=== PATIENT | male | born 1955 | race Caucasian/White ===

== ENCOUNTER 2018-06-03 12:03 | Inpatient (IN) ==
[~2018-06-03 12:03] MED LIST: Glycopyrrolate Inj 1 MG/5 ML Syringe IV.PUSH ONE; Lidocaine PF 1% Inj 5 ML Syringe INFILTRATN ONE; Neostigmine Inj 5 MG/5 ML Syringe IV.PUSH ONE; Phenylephrine/NS 1000 MCG/10ML Syringe IV.PUSH ONE; Succinylcholine Inj 100 MG/5 ML Syringe IV.PUSH ONE
[2018-06-03] MEDS ORDERED: fentaNYL Citrate Inj 100 MCG/2 ML Ampul ONE ×2 (12:07→17:07)
[2018-06-03] MEDS ORDERED: Diphtheria/Tetanus/Pertussis Vaccine Inj 0.5 ML Syringe IM ONE (12:10)
[2018-06-03 12:26] LABS: Baso # (Auto) 0.1 th/mm3 (0.0-0.2); Baso % (Auto) 1.5 % (0.0-2.0); Hematocrit 39.7 % (39.0-51.0); Hemoglobin 14.1 gm/dL (13.0-17.0); Lymph % (Auto) 21.2 % (9.0-44.0); Mean Corpuscular HGB Conc 35.6 % (32.0-36.0); Mean Corpuscular Hemoglobin 34.8 pg (27.0-34.0); Mean Corpuscular Volume 97.7 fL (80.0-100.0); Mean Platelet Volume 6.9 fL (7.0-11.0); Mono # (Auto) 0.6 th/mm3 (0.0-0.9); Mono % (Auto) 12.1 % (0.0-8.0); Neut # (Auto) 3.1 th/mm3 (1.8-7.7); Neut % (Auto) 64.2 % (16.0-70.0); Platelet Count 158 th/mm3 (150-450); Red Blood Count 4.07 mil/mm3 (4.50-5.90); Red Cell Distribution Width 13.2 % (11.6-17.2); White Blood Count 4.8 th/mm3 (4.0-11.0)
[2018-06-03 12:35] LABS: Activated Partial Thrombo Time 25.7 sec (24.3-30.1); Prothrombin Time 10.2 sec (9.8-11.6)
--- NOTE | 2018-06-03 12:48 | CT ---
EXAM DATE: 06/03/2018 12:35 PM EDT AGE/SEX: 89 years / Male INDICATIONS: Trauma, nail gun injury to lower back. CLINICAL DATA: This is the patient's initial encounter. Patient reports that signs and symptoms have been present for 1 day and indicates a pain score of Nonresponsive. MEDICAL/SURGICAL HISTORY: Non-responsive. Non-responsive. ORAL CONTRAST: No oral contrast ingested. RADIATION DOSE: 9.96 CTDI (mGy) ; Combined studies COMPARISON: No prior exams available for comparison. TECHNIQUE: Multiple contiguous axial images were obtained through the abdomen and pelvis following b olus infusion of 97 ml Omnipaque 350 (iohexol) nonionic water-soluble contrast as a single exam dos e. No oral contrast ingested. Using automated exposure control and adjustment of the mA and/or kV ac cording to patient size, radiation dose was kept as low as reasonably achievable to obtain optimal di agnostic quality images. DICOM format image data is available electronically for review and comparis on. FINDINGS: Lower Lungs: The visualized lower lungs are clear. Liver: The liver has a homogeneous density without space-occupying lesion. There is no dilation of th e biliary tree. Spleen: Homogeneous density without enlargement. Pancreas: Unremarkable without mass or calcification. Kidneys: Normal in size and shape. No evidence of mass or hydronephrosis. Adrenal Glands: Unremarkable. Aorta: Atherosclerotic changes abdominal aorta without aneurysmal dilation. Bowel/Mesentery: The bowel loops are grossly unremarkable. The cecum and sigmoid colon have a normal configuration. Abdominal Wall: Intact. Retroperitoneum: No evidence of adenopathy in the retrocrural, para-aortic, or deep pelvic regions. Bladder: Contours are smooth. Reproductive Organs: No abnormal masses or calcifications seen. Inguinal: The inguinal region is unremarkable without evidence of adenopathy. Bony Structures: There is a nail in the right sacrum which enters the skin posteriorly just to the l eft of midline at S1 level and traverses the right posterior lateral thecal sac with tip in the regio n of the right S1 anteriorly on the right. This does come in close proximity to the right S1 nerve ro ot. The tip of the nail is along the anterior right sacral region. No peritoneal involvement. There a re degenerative changes within the lower lumbar spine CONCLUSION: 1. Status post nail gun injury with nail at S1 level traversing the posterior lateral thecal sac and coming in close contact with the right S1 nerve root. Electronically signed by: Rob Arriola MD 06/03/2018 12:47 PM EDT
--- NOTE | 2018-06-03 13:00 | CT ---
EXAM DATE: 06/03/2018 12:50 PM EDT AGE/SEX: 89 years / Male INDICATIONS: Trauma, nailgun injury to lower back. CLINICAL DATA: This is the patient's initial encounter. Patient reports that signs and symptoms have been present for 1 day and indicates a pain score of Nonresponsive. MEDICAL/SURGICAL HISTORY: Non-responsive. Non-responsive. RADIATION DOSE: . CTDI (mGy) ; Reconstructed from previous dataset, no dose COMPARISON: No prior exams available for comparison. TECHNIQUE: Contiguous axial images were acquired with a multirow detector CT scanner after intraveno us administration of 97 ml Omnipaque 350 (iohexol) nonionic water-soluble contrast as a cumulative d ose for multiple exams. Multiplanar reconstructions in the sagittal and coronal plane were also perf ormed. Using automated exposure control and adjustment of the mA and/or kV according to patient size, radiation dose was kept as low as reasonably achievable to obtain optimal diagnostic quality images. DICOM format image data is available electronically for review and comparison. FINDINGS: Vertebrae: Normal vertebral body height. Degenerative disc disease L4-5 and L5-S1 levels. No fractur e. Alignment: Anterolisthesis L3 on 4.. Post Contrast: No abnormal areas of enhancement are seen in the cord, dural or paraspinal regions. Other: There is a nail traversing the back posteriorly just to the left of midline S1 level crosses t hrough the right posterior lateral thecal sac and into the right S1 neural foramen contacting the S1 nerve root. The nail is seen along the anterior edge of right S1. T12-L1: The thecal sac has a normal diameter. No evidence of disc bulge or protrusion. The neural foramina are patent bilaterally. L1-L2: The thecal sac has a normal diameter. No evidence of disc bulge or protrusion. The neural f oramina are patent bilaterally. L2-L3: The thecal sac has a normal diameter. No evidence of disc bulge or protrusion. The neural f oramina are patent bilaterally. L3-L4: Mild broad-based disc bulge abuts the ventral thecal sac without canal stenosis. The neural foramina are patent bilaterally. L4-L5: Mild broad-based disc bulge abuts the ventral thecal sac without canal stenosis. The neural foramina are patent bilaterally. L5-S1: The thecal sac has a normal diameter. No evidence of disc bulge or protrusion. The neural f oramina are patent bilaterally. CONCLUSION: 1. Degenerative changes lower lumbar spine. 2. Nail gun injury with nail coursing S1 and involves the thecal sac and right S1 neural foramen con tacting the right S1 nerve root. Electronically signed by: Rob Arriola MD 06/03/2018 12:59 PM EDT
[2018-06-03] MEDS ORDERED: Morphine Inj 4 MG/ML Vial IV.PUSH ONE (13:02)
--- NOTE | 2018-06-03 14:11 | P.CONNS ---
History of Present Illness Chief Complaint: Foreign body in spinal canal History of Present Illness: ~52 y/o male was performing a construction project when a nail gun misfired resulting in a 4 inch nail inserting through the low back, through the spinal canal into the sacrum. He endorses pain in the posterior aspect of his right leg. Denies weakness, numbness, or paresthesias. Review of Systems All other systems reviewed negative except as stated in HPI PMFSH - History History Provided By: Patient - Medical / Surgical Hx Neg / Unobtainable Surgical History: No Previous Surgery (No prior back surgery) - Medical History Medical History: Medical History (Last Reviewed 06/03/18 @ 13:57 by Tushar Santana MD) Prostate cancer Surgical history unknown - Tobacco History Second Hand Smoke Exposure: No Tobacco Use In Past 30 Days: Yes Smoking Status: Current every day smoker Tobacco Type: Cigarettes - Alcohol History How Often Do You Have a Drink Containing Alcohol: 2 to 4 times a month - Substance Use History Substance History: No History of Abuse - Travel History Recent Travel in the [place] Within the Last 8 Weeks: No Recent Travel Out of the Country Within the Last 8 Weeks: No - Immunization History Tetanus Immunization: >5 Years Hx Influenza Vaccine This Season: No Medications and Allergies Allergies Allergy/AdvReac Type Severity Reaction Status Date / Time codeine AdvReac Nausea Verified 06/03/18 12:51 Home Medications Medication Instructions Recorded Confirmed Type No Known Home Medications 06/03/18 06/03/18 History Exam Vital signs: Vital Signs 06/03/18 12:29 06/03/18 12:30 06/03/18 12:44 Temperature 98.3 F Pulse Rate 81 Respiratory Rate 16 Blood Pressure 124/52 L Pulse Oximetry 98 98 96 06/03/18 12:47 06/03/18 13:12 06/03/18 13:36 Temperature Pulse Rate 75 63 Respiratory Rate 16 16 16 Blood Pressure 111/52 L 129/59 L Pulse Oximetry 97 99 Intake & Output 06/02/18 06/03/18 06/03/18 18:59 06:59 18:59 Weight 70 kg - Constitutional mild distress - Routine HEENT Exam Head: Present: normocephalic Eye: Present: EOMI, PERRL ENT: Present: mucous membranes moist - Routine Neck Exam Present: supple - Routine Chest/Breast/Axilla Exam Chest wall: Absent: tenderness - Routine Respiratory Exam Absent: respiratory distress - Routine Cardiovascular Exam Present: RRR - Routine Abdominal Exam Present: soft - Routine Back/Spine/Pelvis Exam Back/Spine: Present: paraspinal tenderness Back image: 1 - Nail entry Comments: Nail head evident left lower back - Routine Neurological Exam Present: alert, oriented X3 5/5 strength throughout upper and lower extremities Sensation intact to light touch Results - Laboratory Findings CBC and BMP: 06/03/18 12:05 Abnormal lab findings: Abnormal Labs 06/03/18 12:05 RBC 4.07 L MCH 34.8 H MPV 6.9 L [place] % (Auto) 12.1 H - Diagnostic Findings Additional findings: CT lumbar spine demonstrates a ~4 inch nail entering from left to right traversing the spinal canal at the level of S1 and entering the S1 pedicle. There is air within the spinal canal. Assessment and Plan - Assessment (1) Penetrating injury Code(s): T14.8XXA - Other injury of unspecified body region, initial encounter Status: Acute - Plan ~52 y/o male with penetrating foreign body (4 inch nail) with violation of the spinal canal at the L5/S1 level. He is neurologically intact. He endorses right leg pain, that is new from the injury. Plan: OR urgently for removal of foreign body, washout, possible multi-level laminectomy to accomplish removal, and repair of CSF leak as indicated. He and I discussed the risks and benefits of surgery. Risks were discussed including, but not limited to, infection, CSF leak, retained foreign body, nerve root damage resulting in numbness, weakness, paralysis, bowel/bladder dysfunction, sexual dysfunction, stroke, coma, and . He will require post-operative antibiotics for several days. Appreciate trauma surgery service admission.
[2018-06-03] MEDS ORDERED: HYDROmorphone PF Inj 2 MG/ML Vial IV.PUSH PRN ×2 (14:15→17:46)
[2018-06-03] MEDS: Sod Chloride 0.9% Inj 1,000 ML IV.CONT SCH ×2 (14:30→17:44)
[2018-06-03] MEDS: Pantoprazole Inj 40 MG Vial IV.PUSH SCH (14:33)
[2018-06-03] MEDS ORDERED: Lidocaine 1%/Epinephrine 1:100,000 Inj 20 ML Vial ONE (14:42)
--- NOTE | 2018-06-03 14:43 | ED ---
HPI General Chief Complaint: Trauma Alert Stated Complaint: Trauma Alert Time Seen by Provider: 06/03/18 12:18 Source: patient and EMS Mode of arrival: EMS Limitations: no limitations History of Present Illness HPI narrative: Patient is a 63-year-old male, past medical history significant for previous prostate cancer in remission, who presented as a level 1 trauma. He was at work working on a deck when his coworker turned around with a nail gun in hand and accidentally put a nail into his back. The nails are approximately 3 inches long. EMS reports stable vitals in route. Patient denies numbness, weakness. He denies symptoms other than pain in his low back. complaint: injury Onset (ago): minute(s) Loss of Consciousness: no Location: back Severity: mild Associated symptoms: denies other symptoms Related Data Home Medications Medication Instructions Recorded Confirmed No Known Home Medications 06/03/18 06/03/18 Allergies Allergy/AdvReac Type Severity Reaction Status Date / Time codeine AdvReac Nausea Verified 06/03/18 12:51 Review of Systems Constitutional Denies chills Eyes Denies blurry vision ENT Denies nasal congestion Cardiovascular Denies chest pain Respiratory Denies dyspnea Gastrointestinal Denies abdominal pain Genitourinary Denies flank pain Musculoskeletal Reports back pain Integumentary/Breasts Denies rash Neurologic Denies dizziness Psychiatric Denies confusion [facility] Medical History Medical History Prostate cancer (Acute) Surgical history unknown (Acute) Social History Social History Substance History: No History of Abuse Second Hand Smoke Exposure: No Smoking Status: Current every day smoker Tobacco Type: Cigarettes How Often Do You Have a Drink Containing Alcohol: 2 to 4 times a month Recent Travel in [facility] within the Last 8 Weeks: No Recent Out of Country Travel within the Last 8 Weeks: No Immunization History Tetanus Immunization: >5 Years Hx Influenza Vaccine This Season: No Exam Narrative Exam Narrative: GENERAL: Well-appearing male lying on his side. SKIN: Focused skin assessment warm/dry. HEAD: Atraumatic. Normocephalic. EYES: Pupils equal and round. No scleral icterus. No injection or drainage. ENT: No nasal bleeding or discharge. Mucous membranes pink and moist. NECK: Trachea midline. No JVD. CARDIOVASCULAR: Regular rate and rhythm. No murmur appreciated. RESPIRATORY: No accessory muscle use. Clear to auscultation. Breath sounds equal bilaterally. GASTROINTESTINAL: Abdomen soft, non-tender, nondistended. Hepatic and splenic margins not palpable. MUSCULOSKELETAL: No clubbing. No cyanosis. No edema. Penetrating wound with visible nail head to the low lumbar spine near the midline. NEUROLOGICAL: Awake and alert. No obvious cranial nerve deficits. Able to wiggle toes bilaterally and reports normal sensation in his feet bilaterally. Normal speech. PSYCHIATRIC: Appropriate mood and affect; insight and judgment normal. Course Initial Documented Vital Signs Pulse Oximetry 98 06/03/18 12:29 Last Documented Vital Signs Temperature 98.3 F 06/03/18 12:44 Pulse Rate 71 06/03/18 14:15 Respiratory Rate 16 06/03/18 14:15 Blood Pressure 122/58 L 06/03/18 14:15 Pulse Oximetry 98 06/03/18 14:15 Medical Decision Making MDM Narrative Medical decision making narrative: Patient is a 63-year-old male who presents status post nail gun injury. He is able to wiggle his toes bilaterally and states the sensation is normal in his feet bilaterally. Hemodynamically stable while in the emergency department. CT lumbar spine did show that injury traverses S1. Dr. Gann of neurosurgery was emergently consulted and agreed to take the patient to the operating room. He was given Ancef and his tetanus status was updated in the emergency department. He was then admitted to the trauma service under Dr. Mead for further management. Differential Diagnosis Differential Diagnosis: Differential diagnosis includes but is not limited to spinal cord injury, musculoskeletal injury, intra-abdominal injury. Medical Records Medical records reviewed: Yes I reviewed the patient's medical records. Lab Data Lab results reviewed: Yes I reviewed the patient's lab results. Lab results narrative: Normal hemoglobin. Result diagrams: 06/03/18 12:05 Lab Results 06/03/18 06/03/18 06/03/18 Range/Units 12:05 12:05 12:05 WBC 4.8 (4.0-11.0) th/mm3 RBC 4.07 L (4.50-5.90) mil/mm3 Hgb 14.1 (13.0-17.0) gm/dL POC Hgb (Calc) 13.3 (13.0-17.0) g/dL Hct 39.7 (39.0-51.0) % POC Hct 39.0 (39-51.0) % MCV 97.7 (80.0-100.0) fL MCH 34.8 H (27.0-34.0) pg MCHC 35.6 (32.0-36.0) % RDW 13.2 (11.6-17.2) % Plt Count 158 (150-450) th/mm3 MPV 6.9 L (7.0-11.0) fL Neut % (Auto) 64.2 (16.0-70.0) % Lymph % (Auto) 21.2 (9.0-44.0) % [place] % (Auto) 12.1 H (0.0-8.0) % Eos % (Auto) 1.0 (0.0-4.0) % Baso % (Auto) 1.5 (0.0-2.0) % Neut # (Auto) 3.1 (1.8-7.7) th/mm3 Lymph # (Auto) 1.0 (1.0-4.8) th/mm3 [place] # (Auto) 0.6 (0.0-0.9) th/mm3 Eos # (Auto) 0.0 (0.0-0.4) th/mm3 Baso # (Auto) 0.1 (0.0-0.2) th/mm3 WBC Differential . Differential Comment Auto diff final PT 10.2 (9.8-11.6) sec INR 1.0 Ratio APTT 25.7 (24.3-30.1) sec POC Sodium 142 (137-144) mmol/L POC Potassium 3.9 (3.6-5.0) mmol/L POC Chloride 105 (102-111) mmol/L POC BUN 8 (5-21) mg/dL POC Creatinine 0.9 (0.6-1.3) mg/dL POC Glucose 81 (68-110) mg/dL Blood Type Antibody Screen 06/03/18 Range/Units 12:05 WBC (4.0-11.0) th/mm3 RBC (4.50-5.90) mil/mm3 Hgb (13.0-17.0) gm/dL POC Hgb (Calc) (13.0-17.0) g/dL Hct (39.0-51.0) % POC Hct (39-51.0) % MCV (80.0-100.0) fL MCH (27.0-34.0) pg MCHC (32.0-36.0) % RDW (11.6-17.2) % Plt Count (150-450) th/mm3 MPV (7.0-11.0) fL Neut % (Auto) (16.0-70.0) % Lymph % (Auto) (9.0-44.0) % [place] % (Auto) (0.0-8.0) % Eos % (Auto) (0.0-4.0) % Baso % (Auto) (0.0-2.0) % Neut # (Auto) (1.8-7.7) th/mm3 Lymph # (Auto) (1.0-4.8) th/mm3 [place] # (Auto) (0.0-0.9) th/mm3 Eos # (Auto) (0.0-0.4) th/mm3 Baso # (Auto) (0.0-0.2) th/mm3 WBC Differential Differential Comment PT (9.8-11.6) sec INR Ratio APTT (24.3-30.1) sec POC Sodium (137-144) mmol/L POC Potassium (3.6-5.0) mmol/L POC Chloride (102-111) mmol/L POC BUN (5-21) mg/dL POC Creatinine (0.6-1.3) mg/dL POC Glucose (68-110) mg/dL Blood Type A Positive Antibody Screen Negative Imaging Data Attestation: I personally reviewed and interpreted this imaging study as follows : My impression: Nail gun injury at the S1 level. Radiologist's impression: Abdomen/Pelvis CT 06/03/18 12:09 CONCLUSION: 1. Status post nail gun injury with nail at S1 level traversing the posterior lateral thecal sac and coming in close contact with the right S1 nerve root. Lumbar Spine CT 06/03/18 12:10 CONCLUSION: 1. Degenerative changes lower lumbar spine. 2. Nail gun injury with nail coursing S1 and involves the thecal sac and right S1 neural foramen contacting the right S1 nerve root. Discharge Plan Discharge Disposition Patient Disposition: 30 Still Patient Discharge Condition Condition: Stable Discharge Details Diagnosis: Penetrating injury Physicians Team ED Provider: Niesha Weiss Attending Provider: Cam Mead Other Providers: Dre Quevedo ; Obdulio Almonte ; [facility] [facility] ; Yoel Arias ; Licha Melendez ; Cam Mead ; Lily Wylie ; Rachel Rivre ; Jose Denis Status ED Status: Admitted Patient
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
[2018-06-03] MEDS ORDERED: Gelatin Size 100 Topical Foam ONE (14:57)
[2018-06-03] MEDS ORDERED: ceFAZolin 2 GM Premix Inj 0 GM/0 ML PIGGYBACK IV.SIG ONE (15:03)
[2018-06-03] MEDS: Thrombin Topical Soln 5,000 UNIT Vial TOPICAL ONE ×2 (15:44→18:28)
[2018-06-03] MEDS ORDERED: Vancomycin Inj 1,000 MG in Sodium Chlor 0.9% Inj 250 ML IV.SIG ONE (16:04)
--- NOTE | 2018-06-03 16:57 | P.BOP ---
- Preoperative Diagnosis (1) Penetrating injury Comment: Nail penetration - Postoperative Diagnosis (1) Penetrating injury Comment: Nail penetration Date of procedure: 06/03/18 Procedure: Removal of foreign body; wound washout and closure Anesthesia: GETA Surgeon: Tushar Santana MD Estimated blood loss (mL): 30 Pathology: none sent Condition: stable Disposition: PACU
--- NOTE | 2018-06-03 17:08 | XR ---
EXAM DATE: 06/03/2018 4:59 PM EDT AGE/SEX: 89 years / Male INDICATIONS: Surgical removal of foreign body from posterior sacral region. CLINICAL DATA: This is the patient's initial encounter. Patient reports that signs and symptoms have been present for 1 day and indicates a pain score of Nonresponsive. MEDICAL/SURGICAL HISTORY: None. None. [place] [facility] [place]. . FINDINGS: 2 views of the sacral area was performed. The previously noted nail through the sacrum has been remov ed. Surgical clips are seen on the AP view. CONCLUSION: Satisfactory postoperative view. Electronically signed by: Nino Armando MD 06/03/2018 5:06 PM EDT
--- NOTE | 2018-06-03 18:11 | P.PNNS ---
Subjective Interval history: Post-operative check. Comfortable in bed Physical Exam Vital signs: Vital Signs 06/03/18 12:29 06/03/18 12:30 06/03/18 12:44 Temperature 98.3 F Pulse Rate 81 Respiratory Rate 16 Blood Pressure 124/52 L Pulse Oximetry 98 98 96 06/03/18 12:47 06/03/18 13:12 06/03/18 13:36 Temperature Pulse Rate 75 63 Respiratory Rate 16 16 16 Blood Pressure 111/52 L 129/59 L Pulse Oximetry 97 99 06/03/18 14:15 06/03/18 16:54 06/03/18 17:15 Temperature 97.5 F L Pulse Rate 71 89 Respiratory Rate 16 12 Blood Pressure 122/58 L 146/63 H Pulse Oximetry 98 99 97 06/03/18 17:30 06/03/18 17:45 Temperature Pulse Rate Respiratory Rate Blood Pressure Pulse Oximetry 97 97 Intake & Output 06/02/18 06/03/18 06/03/18 18:59 06:59 18:59 Intake Total 1000 / 1000 Balance 1000 / 1000 Weight 70 kg Intake: IV 1000 / 1000 NS Inj 1,000 ML @ 100 mls/hr IV 1000 / 1000 .CONT .Q10H [facility] Rx#:[id number] Narrative: Opens eyes to voice 5/5 strength throughout extremities Endorses normal sensation to light touch lower extremities Right leg pain improved - Urinary Catheter Management Indwelling Urethral Catheter Cath placed during this visit: yes Reason for continuing: Hourly intake/output Insertion date: 06/03/18 Insertion time: 15:20 Assessment and Plan - Assessment (1) Penetrating injury Code(s): T14.8XXA - Other injury of unspecified body region, initial encounter Status: Acute - Plan Plan: Post-operatively doing well. Neurologically stable, reports improvement in right leg pain. Bactrim DS PO q12h (ordered). Activity ad vickey.
[2018-06-03] MEDS: Docusate Sodium 100 MG Capsule PO SCH (20:02)
--- NOTE | 2018-06-03 20:37 | MP ---
cc: Tushar Santana MD DATE OF OPERATION: 06/03/2018 PREOPERATIVE DIAGNOSIS: Penetrating foreign body, sacral spine. POSTOPERATIVE DIAGNOSIS: Penetrating foreign body, sacral spine. PROCEDURE PERFORMED: 1. Removal of foreign body in the sacral spine. 2. Wound washout. SURGEON: Tushar Santana MD ESTIMATED BLOOD LOSS: 30 mL. 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 He was brought to the ER where CT imaging demonstrated the nail traversing through the spinal canal at the level of S1 and terminating in the right sacrum. Of note, the entry point was on the left and took a left to right trajectory. I evaluated the patient in the ER and we discussed at length the risks and benefits of surgical intervention. We discussed risks including, but not limited to retained foreign body, CSF leak, nerve root damage, bowel or bladder dysfunction, numbness, paralysis, weakness, coma, stroke, , infection. He agreed to proceed with surgery. OPERATION AND FINDINGS: The patient was brought to the major operative suite. He was induced under general endotracheal anesthesia. Preoperative antibiotics in the form of vancomycin were administered. He was carefully rotated 180 degrees onto a Al table with a [place] frame. All pressure points were appropriately padded. A preoperative timeout was performed, verifying the correct patient, procedure and administration of IV antibiotics. The head of the nail was present through the left sacral aspect of the skin. A curvilinear incision was fashioned around the nail. The skin was injected with 1% lidocaine with epinephrine. A 10 blade was used to incise the skin and bipolar electrocautery was used to maintain hemostasis. Dissection was carried down to the level of the fascia. At this point, a pair of sterile pliers was used to gently place outward traction on the nail and it removed with ease. Anesthesia performed a Valsalva maneuver on the patient and there was no evidence of CSF leak. The wound was copiously irrigated with gentamicin irrigation. There was again no evidence of a CSF leak, so we proceeded to close. The fascial layer was closed tightly with 0 Vicryl suture. The subcutaneous layer was closed with 2-0 Vicryl suture and the skin was closed with a running 2-0 nylon vertical mattress suture with intervening kenton. Fluoroscopy was brought in to verify that the entirety of the foreign body was removed. Both AP and lateral shots were taken and it was confirmed that the entirety of the nail was removed, consistent with our gross interpretation of looking at the nail. All counts were correct at the end of the procedure. There were no intraoperative complications. Estimated blood loss was 30 mL. I was present for the entirety of the case from the beginning until the end. DISPOSITION: PACU. MD NORTH Garland/anila , 05:14 PM , 05:21 PM
[2018-06-04] MEDS: Sod Chloride 0.9% Inj 1,000 ML IV.CONT SCH ×2 (03:10→14:43)
[2018-06-04 03:51] LABS: Baso % (Auto) 0.3 % (0.0-2.0); Hematocrit 42.7 % (39.0-51.0); Hemoglobin 14.4 gm/dL (13.0-17.0); Lymph # (Auto) 0.4 th/mm3 (1.0-4.8); Lymph % (Auto) 4.9 % (9.0-44.0); Mean Corpuscular HGB Conc 33.7 % (32.0-36.0); Mean Corpuscular Hemoglobin 34.2 pg (27.0-34.0); Mean Corpuscular Volume 101.3 fL (80.0-100.0); Mean Platelet Volume 7.1 fL (7.0-11.0); Mono # (Auto) 0.4 th/mm3 (0.0-0.9); Mono % (Auto) 4.9 % (0.0-8.0); Neut # (Auto) 6.5 th/mm3 (1.8-7.7); Neut % (Auto) 89.9 % (16.0-70.0); Platelet Count 145 th/mm3 (150-450); Red Blood Count 4.22 mil/mm3 (4.50-5.90); Red Cell Distribution Width 13.7 % (11.6-17.2); White Blood Count 7.2 th/mm3 (4.0-11.0)
[2018-06-04] MEDS ORDERED: Chlorhexidine Gluconate 2% 1 Pack (2 Cloths) TOPICAL SCH (04:00)
[2018-06-04] MEDS ORDERED: Chlorhexidine Gluconate 2% 1 Pack (2 Cloths) TOPICAL PRN (04:00)
[2018-06-04 04:20] LABS: Carbon Dioxide 25.9 meq/L (21.0-32.0); Potassium 4.4 meq/L (3.5-5.1)
[2018-06-04] MEDS ORDERED: Dextrose 50% in Water 50 ML Vial IV.PUSH PRN (07:52)
[2018-06-04 08:13] VITALS: RESP 18
[2018-06-04] MEDS: Docusate Sodium 100 MG Capsule PO SCH (08:52)
[2018-06-04] MEDS: Insulin NovoLOG Aspart Correctional Sugar Inj SQ SCH ×3 (09:56→17:18)
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
[2018-06-04 16:17] VITALS: BP 125/71; PULSE 67; TEMP 98; O2SAT 94
[2018-06-04] MEDS: Pantoprazole Inj 40 MG Vial IV.PUSH SCH (17:15)
--- NOTE | 2018-06-04 17:38 | P.PNNS ---
Subjective Interval history: Doing well. Still has pain in back at surgical site but not radiating down the legs. Got up and PT recommended a walker- patient reluctant to use it Physical Exam Vital signs: Vital Signs 06/03/18 17:45 06/03/18 18:00 06/03/18 20:00 Temperature 97.1 F L Pulse Rate 84 96 H 78 Respiratory Rate 12 12 17 Blood Pressure 153/68 H 163/70 H 152/67 H Pulse Oximetry 94 L 96 92 L 06/03/18 23:59 06/04/18 00:00 06/04/18 04:00 Temperature 97.4 F L 98.0 F Pulse Rate 69 76 62 Respiratory Rate 17 17 Blood Pressure 101/52 L 111/53 L Pulse Oximetry 93 L 95 06/04/18 08:00 06/04/18 09:00 06/04/18 09:07 Temperature 98.2 F Pulse Rate 51 L 63 Respiratory Rate 18 Blood Pressure 128/60 Pulse Oximetry 96 93 L 06/04/18 10:21 06/04/18 12:00 06/04/18 16:00 Temperature 98.3 F 98.0 F Pulse Rate 50 L 67 Respiratory Rate 18 18 18 Blood Pressure 95/51 L 125/71 Pulse Oximetry 97 94 L Intake & Output 06/03/18 06/04/18 06/04/18 18:59 06:59 18:59 Intake Total 1000 / 1000 2750 / 2750 2690 / 2690 Output Total 1270 / 1270 400 / 400 Balance 1000 / 1000 1480 / 1480 2290 / 2290 Weight 70 kg 70 kg Intake: IV 1000 / 1000 1250 / 1250 2690 / 2690 NS Inj 1,000 ML @ 100 mls/hr IV 1000 / 1000 1000 / 1000 2690 / 2690 .CONT .Q10H [facility] Rx#:[id number] Vancomycin Inj 1,000 MG In NS 250 / 250 Inj 250 ML @ 250 mls/hr IV.SIG ONCE ONE Rx#:[id number] Anesthesia Amount 1500 / 1500 Output: Urine 750 / 750 400 / 400 Estimated Blood Loss 20 / 20 Urine Amount (Catheter) 500 / 500 Indwelling Urethral Catheter 500 / 500 Other: Date of Last Bowel Movement 06/03/18 06/03/18 Narrative: Opens eyes to voice 5/5 strength throughout extremities Endorses normal sensation to light touch lower extremities Right leg pain improved Incision c/d/i, some mild oozing wnl - Urinary Catheter Management Indwelling Urethral Catheter Cath placed during this visit: yes, but has since been removed by the nurse Reason for continuing: Decision to DC catheter Insertion date: 06/03/18 Insertion time: 15:20 Removal date: 06/04/18 Removal time: 10:28 Assessment and Plan - Assessment (1) Penetrating injury Code(s): T14.8XXA - Other injury of unspecified body region, initial encounter Status: Acute - Plan Plan: Post-operatively doing well. Neurologically stable, reports improvement in right leg pain. Bactrim DS PO q12h to continue x 7 days. Activity ad vickey per PT guidance Follow-up in 2 weeks for suture/staple removal with Dr. Kay. Neurosurgically cleared for discharge.
== END 2018-06-04 18:25 | disposition home or self-care (01) ==
LOC: NEPI 12:03 → EDBD 13:22 → NEDA 13:22 → N06 18:24
PROVIDERS: ADMIT Surgery; ATTEND Surgery